=== PATIENT | female | born 1985 | race Caucasian/White ===

== ENCOUNTER 2020-05-12 23:14 | Observation (INO) | payer MEDICAID ==
[2020-05-12] MEDS ORDERED: EPINEPHRINE 1MG/ML AMP ONE (23:35)
[2020-05-12] MEDS ORDERED: solu-MEDROL 125 MG IV ONE (23:37)
[2020-05-12] MEDS ORDERED: BENADRYL 50 MG/ML ONE (23:38)
[2020-05-12] MEDS ORDERED: BENADRYL 50 MG/ML IV ONE (23:38)
[2020-05-12] MEDS ORDERED: Pepcid 20 MG VIAL IV ONE ×2 (23:38)
[2020-05-12] MEDS ORDERED: solu-MEDROL 125 MG ONE (23:38)
[2020-05-12] MEDS ORDERED: EPINEPHRINE 1MG/ML AMP IM ONE (23:40)
[2020-05-13 00:04] LABS: Absolute Neutrophil Ct (ANC) 7.57 (1.4-6.9); BASOPHIL % 0.4 % (0.0-0.4); Basophil (Absolute #) 0.04 (0-0.4); Eosinophil % 5.2 % (0.00-5.0); Eosinophil (Absolute #) 0.56 (0-0.5); Hematocrit 40.9 % (35-47); Hemoglobin 13.8 gm/dl (12.0-16.0); Lymphocyte (Absolute #) 1.83 (1.0-4.6); Lymphocytes % 16.9 % (24.0-44.0); Mean Cell Volume 90.1 fl (78-100); Mean Corpuscular Hemoglobin 30.4 pg (26-32); Mean Corpuscular Hgb Concent. 33.7 g/dl (32-36); Mean Platelet Volume 9.9 fl (7.5-11.0); Monocyte (Absolute #) 0.85 (0.0-1.3); Monocytes % 7.8 % (0.0-12.0); Neutrophil % 69.7 % (36.0-66.0); Platelet Count 322 K/mm3 (150-450); Red Blood Count 4.54 M/mm3 (4.1-5.4); Red Cell Distribution Width 12.5 % (11.5-14.0); White Blood Count 10.9 K/mm3 (4.0-10.5)
[2020-05-13 00:17] LABS: ALKALINE PHOSPHATASE 56 U/L (38-126); ANION GAP 12.1 MEQ/L (5-15); BLOOD UREA NITROGEN 15 mg/dL (7-17); CHLORIDE 106 mmol/L (98-107); Calcium 9.2 mg/dL (8.4-10.2); Carbon Dioxide 24 mmol/L (22-30); Creatinine 1 0.62 mg/dL (0.52-1.04); EST GLOMERULAR FILTRATION RATE > 60.0 ML/MIN; Glucose 104 mg/dL (74-106); Potassium 3.6 mmol/L (3.5-5.1); SGOT/AST 21 U/L (14-36); SGPT/ALT 13 U/L (0-35); SODIUM 138 mmol/L (137-145); Total Protein 7.3 g/dL (6.3-8.2)
--- NOTE | 2020-05-13 00:41 | ERPHSYRPT ---
- History of Present Illness Time Seen by Provider: 05/12/20 23:45 Source: patient Exam Limitations: no limitations Patient Subjective Stated Complaint: pt states that she was cleaning this morning with bleach and had a reaction Triage Nursing Assessment: pt ambulated into the er; pt is tearful, anxious, restless; pt is unable to talk due to swelling of lips and tongue; c/o allergic reaction; pt denies pain; pt has swelling to face, lips, tongue; pt has hived throughtout body; pt states itching throughtout torso; pt has diminished breath sound to upper lobes; lower lobes are clear; pt denies pain; hypertension; pt states exposure to bleach was 0400 this morning Physician History: Patient is a 34-year-old female presents to our ED with complaints of allergic reaction. Patient attributes her reaction to bleach exposure. Patient states she was cleaning earlier in the day. She was splashed with bleach on her anterior chest and face. Patient states that thereafter she became itchy. Patient felt her tongue started to swell. Patient did not immediately come in that she felt things would resolve. However symptoms worsen. Patient currently has swelling of her lips and her tongue. She is tolerating oral secretions. Lungs are clear. Patient complains of pruritic rash at her and abdominal area. Patient states she chronically has dry skin. Patient does not have a history of eczema. Symptoms are mild to moderate in intensity. Symptoms are progressive. No associated chest pain or shortness of breath. No nausea vomiting or diaphoresis. Patient voices no other complaints at this time. Timing/Duration: today Severity: moderate Modifying Factors: Improves With: nothing Associated Symptoms: denies symptoms Allergies/Adverse Reactions: cephalexin [From Keflex] Allergy (Verified 05/12/20 23:30) Hx Tetanus, Diphtheria Vaccination/Date Given: No (unknown) Hx Influenza Vaccination/Date Given: No Travel Risk - International Travel Have you traveled outside of the country in past 3 weeks: No - Coronavirus Screening Are you exhibiting any of the following symptoms?: No Close contact with a COVID-19 positive Pt in past 14-21 Days: No - Review of Systems Constitutional: No Symptoms, No Fever, No Chills Eyes: No Symptoms Ears, Nose, & Throat: No Symptoms Respiratory: No Symptoms, Other, No Cough, No Dyspnea, No Stridor, No Wheezing Cardiac: No Symptoms (Lungs are clear.), No Chest Pain, No Edema, No Syncope Abdominal/Gastrointestinal: No Symptoms, Other (No abdominal pain or cramping.), No Abdominal Pain, No Nausea, No Vomiting, No Diarrhea Genitourinary Symptoms: No Symptoms, No Dysuria Musculoskeletal: No Symptoms, No Back Pain, No Neck Pain Skin: Rash, Other (Pruritic rash observed at bilateral upper extremities upper chest and abdomen.) Neurological: No Dizziness, No Focal Weakness, No Sensory Changes Psychological: No Symptoms Endocrine: No Symptoms Hematologic/Lymphatic: No Symptoms Immunological/Allergic: No Symptoms All Other Systems: Unable due to condition - Past Medical History Pertinent Past Medical History: No - Past Surgical History Past Surgical History: Yes Female Surgical History: Tubal Ligation - Social History Smoking Status: Current every day smoker Exposure to second hand smoke: Yes Drug Use: none Patient Lives Alone: No - Female History Hx Now: No - Nursing Vital Signs Nursing Vital Signs: Initial Vital Signs Temperature 98.4 F 05/12/20 23:31 Pulse Rate 97 H 05/12/20 23:31 Respiratory Rate 22 05/12/20 23:31 Blood Pressure 165/138 05/12/20 23:31 O2 Sat by Pulse Oximetry 98 05/12/20 23:31 Pain Scale Pain Intensity 0 - Physical Exam General Appearance: no apparent distress, alert Eye Exam: PERRL/EOMI, eyes nml inspection Ears, Nose, Throat Exam: normal ENT inspection, TMs normal, pharynx normal, moist mucous membranes Neck Exam: normal inspection, non-tender, supple, full range of motion Respiratory Exam: normal breath sounds, lungs clear, No respiratory distress, No airway intact (There is trismus observed. However patient tolerating secretions.) Cardiovascular Exam: regular rate/rhythm, normal heart sounds, normal peripheral pulses Gastrointestinal/Abdomen Exam: soft, normal bowel sounds, No tenderness, No mass Back Exam: normal inspection, normal range of motion, No CVA tenderness, No vertebral tenderness Extremity Exam: normal inspection, normal range of motion, pelvis stable Neurologic Exam: alert, oriented x 3, cooperative, normal mood/affect, sensation nml, No motor deficits Skin Exam: normal color, warm, dry, other (Patient has hives on chest and upper extremity.), No rash Lymphatic Exam: No adenopathy SpO2 Interpretation: normal SpO2: 100 O2 Delivery: Room Air - Course Nursing assessment & vital signs reviewed: Yes - Radiology Exams Chest X-ray Interpretation: Teleradiologist Report ([facility] pathology. Lungs unremarkable. Pleural spaces unremarkable. Heart mediastinum unremarkable. There is a mild lateral curvature in the lower thoracic spine which may be due to patient positioning or mild dextroscoliosis.) Ordered Tests: Active Orders 24 hr Category Date Time Status Tile Sprayer STAT Care 05/12/20 23:40 Active IV Insertion STAT Care 05/12/20 23:40 Active Pulse Oximetry (ED) STAT Care 05/12/20 23:40 Active CHEST 1 VIEW (PORTABLE) Stat Exams 05/12/20 23:41 Taken CBC W DIFF Stat Lab 05/12/20 00:00 Completed CMP Stat Lab 05/12/20 00:00 Completed HCG,QUALITATIVE URINE Stat Lab 05/13/20 00:15 Completed UA W/RFX UR CULTURE Stat Lab 05/13/20 00:15 Completed Transfer Order Routine Transfer 05/13/20 Ordered Medication Summary Discontinued Medications Generic Name Dose Route Start Last Admin Trade Name Luis Mq PRN Reason Stop Dose Admin Diphenhydramine HCl 25 mg 05/12/20 23:38 05/12/20 23:43 Benadryl 50 Mg/Ml IV 05/12/20 23:39 25 mg STAT ONE Administration Diphenhydramine HCl Confirm 05/12/20 23:38 Benadryl 50 Mg/Ml Administered 05/12/20 23:39 Dose 50 mg .ROUTE .STK-MED ONE Diphenhydramine HCl 25 mg 05/13/20 00:43 05/13/20 00:53 Benadryl 50 Mg/Ml IV 05/13/20 00:44 25 mg STAT ONE Administration Diphenhydramine HCl Confirm 05/13/20 00:52 Benadryl 50 Mg/Ml Administered 05/13/20 00:53 Dose 50 mg .ROUTE .STK-MED ONE Epinephrine HCl Confirm 05/12/20 23:35 Epinephrine 1mg/Ml Amp Administered 05/12/20 23:36 Dose 1 mg .ROUTE .STK-MED ONE Epinephrine HCl 0.3 mg 05/12/20 23:40 05/12/20 23:41 Epinephrine 1mg/Ml Amp IM 05/12/20 23:41 0.3 mg STAT ONE Administration Famotidine 20 mg 05/12/20 23:38 05/12/20 23:45 Pepcid 20 Mg Vial IV 05/12/20 23:39 20 mg STAT ONE Administration Famotidine Confirm 05/12/20 23:38 Pepcid 20 Mg Vial Administered 05/12/20 23:39 Dose 20 mg IV .STK-MED ONE Methylprednisolone Sodium Succinate 125 mg 05/12/20 23:37 05/12/20 23:50 Solu-Medrol 125 Mg IV 05/12/20 23:38 125 mg STAT ONE Administration Methylprednisolone Sodium Succinate Confirm 05/12/20 23:38 Solu-Medrol 125 Mg Administered 05/12/20 23:39 Dose 125 mg .ROUTE .STK-MED ONE Lab/Rad Data: Laboratory Result Diagrams 05/12/20 00:00 05/12/20 00:00 Laboratory Results 05/13/20 05/13/20 05/12/20 Range/Units 00:15 00:15 00:00 WBC (4.0-10.5) K/mm3 RBC (4.1-5.4) M/mm3 Hgb (12.0-16.0) gm/dl Hct (35-47) % MCV (78-100) fl MCH (26-32) pg MCHC (32-36) g/dl RDW (11.5-14.0) % Plt Count (150-450) K/mm3 MPV (7.5-11.0) fl Gran % (36.0-66.0) % Eos # (Auto) (0-0.5) Absolute Lymphs (auto) (1.0-4.6) Absolute Monos (auto) (0.0-1.3) Lymphocytes % (24.0-44.0) % Monocytes % (0.0-12.0) % Eosinophils % (0.00-5.0) % Basophils % (0.0-0.4) % Absolute Granulocytes (1.4-6.9) Basophils # (0-0.4) Sodium 138 (137-145) mmol/L Potassium 3.6 (3.5-5.1) mmol/L Chloride 106 (98-107) mmol/L Carbon Dioxide 24 (22-30) mmol/L Anion Gap 12.1 (5-15) MEQ/L BUN 15 (7-17) mg/dL Creatinine 0.62 (0.52-1.04) mg/dL Estimated GFR > 60.0 ML/MIN Glucose 104 (74-106) mg/dL Calcium 9.2 (8.4-10.2) mg/dL Total Bilirubin 0.10 L (0.2-1.3) mg/dL AST 21 (14-36) U/L ALT 13 (0-35) U/L Alkaline Phosphatase 56 (38-126) U/L Serum Total Protein 7.3 (6.3-8.2) g/dL Albumin 4.0 (3.5-5.0) g/dL Urine Color YELLOW (YELLOW) Urine Appearance CLEAR (CLEAR) Urine pH 6.0 (5-6) Ur Specific [place] 1.017 (1.005-1.025) Urine Protein NEGATIVE (Negative) Urine Ketones NEGATIVE (NEGATIVE) Urine Blood LARGE (0-5) Luis/ul Urine Nitrite NEGATIVE (NEGATIVE) Urine Bilirubin NEGATIVE (NEGATIVE) Urine Urobilinogen NEGATIVE (0-1) mg/dL Ur Leukocyte Esterase TRACE (NEGATIVE) Urine WBC (Auto) 3-5 (0-5) /HPF Urine RBC (Auto) 26-50 (0-2) /HPF U Epithel Cells (Auto) NONE (FEW) /HPF Urine Bacteria (Auto) NONE (NEGATIVE) /HPF Urine Mucus (Auto) SLIGHT (NEGATIVE) /HPF Urine Culture Reflexed NO (NO) Urine Glucose NEGATIVE (NEGATIVE) mg/dL Urine HCG, Qual NEGATIVE (Negative) 05/12/20 Range/Units 00:00 WBC 10.9 H (4.0-10.5) K/mm3 RBC 4.54 (4.1-5.4) M/mm3 Hgb 13.8 (12.0-16.0) gm/dl Hct 40.9 (35-47) % MCV 90.1 (78-100) fl MCH 30.4 (26-32) pg MCHC 33.7 (32-36) g/dl RDW 12.5 (11.5-14.0) % Plt Count 322 (150-450) K/mm3 MPV 9.9 (7.5-11.0) fl Gran % 69.7 H (36.0-66.0) % Eos # (Auto) 0.56 H (0-0.5) Absolute Lymphs (auto) 1.83 (1.0-4.6) Absolute Monos (auto) 0.85 (0.0-1.3) Lymphocytes % 16.9 L (24.0-44.0) % Monocytes % 7.8 (0.0-12.0) % Eosinophils % 5.2 H (0.00-5.0) % Basophils % 0.4 (0.0-0.4) % Absolute Granulocytes 7.57 H (1.4-6.9) Basophils # 0.04 (0-0.4) Sodium (137-145) mmol/L Potassium (3.5-5.1) mmol/L Chloride (98-107) mmol/L Carbon Dioxide (22-30) mmol/L Anion Gap (5-15) MEQ/L BUN (7-17) mg/dL Creatinine (0.52-1.04) mg/dL Estimated GFR ML/MIN Glucose (74-106) mg/dL Calcium (8.4-10.2) mg/dL Total Bilirubin (0.2-1.3) mg/dL AST (14-36) U/L ALT (0-35) U/L Alkaline Phosphatase (38-126) U/L Serum Total Protein (6.3-8.2) g/dL Albumin (3.5-5.0) g/dL Urine Color (YELLOW) Urine Appearance (CLEAR) Urine pH (5-6) Ur Specific [place] (1.005-1.025) Urine Protein (Negative) Urine Ketones (NEGATIVE) Urine Blood (0-5) Luis/ul Urine Nitrite (NEGATIVE) Urine Bilirubin (NEGATIVE) Urine Urobilinogen (0-1) mg/dL Ur Leukocyte Esterase (NEGATIVE) Urine WBC (Auto) (0-5) /HPF Urine RBC (Auto) (0-2) /HPF U Epithel Cells (Auto) (FEW) /HPF Urine Bacteria (Auto) (NEGATIVE) /HPF Urine Mucus (Auto) (NEGATIVE) /HPF Urine Culture Reflexed (NO) Urine Glucose (NEGATIVE) mg/dL Urine HCG, Qual (Negative) - Progress Progress: improved Progress Note: 05/13/20 00:59 patient reassessed. Patient is much more conversant at this time. She states she feels a swelling in her tongue and mouth decreasing. Patient still experiencing some pruritus. A second 25 mg dose of Benadryl ord ered. Patient is improving. However she is not ready for discharge. Case discussed with Dr. Zvaala who accepts admission to observation. We will place patient in the intensive care unit for observation. Plan of care discussed with patient. She agrees to admission to [facility] for further evaluation and treatment. She voices no other complaints or concerns at this time. Discussed with .: Nara Will see patient in: hospital (observation) Counseled pt/family regarding: lab results, diagnosis, rad results - Departure Departure Disposition: Observation Clinical Impression: Allergic reaction, Pruritic rash Condition: Stable Critical Care Time: No Referrals: LANCE CERRATO [Primary Care Provider] -
[2020-05-13] MEDS ORDERED: BENADRYL 50 MG/ML IV ONE (00:43)
[2020-05-13 00:44] LABS: Appearance CLEAR (CLEAR); Bilirubin NEGATIVE (NEGATIVE); Blood LARGE Ery/ul (0-5); Glucose NEGATIVE (NEGATIVE); Ketones NEGATIVE (NEGATIVE); Leukocyte Esterase TRACE (NEGATIVE); Mucus SLIGHT /HPF (NEGATIVE); Nitrite NEGATIVE (NEGATIVE); Protein,Urine Dip NEGATIVE (Negative); RBC 26-50 /HPF (0-2); Specific Gravity 1.017 (1.005-1.025); Urobilinogen NEGATIVE mg/dL (0-1)
[2020-05-13] MEDS ORDERED: BENADRYL 50 MG/ML ONE (00:52)
[2020-05-13] MEDS ORDERED: Nicoderm CQ 21 MG TOP ONE (03:59)
[2020-05-13] MEDS: BENADRYL 50 MG/ML IV PRN ×4 (04:05→20:55)
[2020-05-13 05:13] LABS: Absolute Neutrophil Ct (ANC) 15.32 (1.4-6.9); BASOPHIL % 0.2 % (0.0-0.4); Basophil (Absolute #) 0.03 (0-0.4); Eosinophil % 0.2 % (0.00-5.0); Eosinophil (Absolute #) 0.03 (0-0.5); Hematocrit 41.9 % (35-47); Hemoglobin 13.9 gm/dl (12.0-16.0); Lymphocyte (Absolute #) 0.64 (1.0-4.6); Mean Cell Volume 90.1 fl (78-100); Mean Corpuscular Hemoglobin 29.9 pg (26-32); Mean Corpuscular Hgb Concent. 33.2 g/dl (32-36); Mean Platelet Volume 10.1 fl (7.5-11.0); Monocyte (Absolute #) 0.05 (0.0-1.3); Monocytes % 0.3 % (0.0-12.0); Neutrophil % 95.3 % (36.0-66.0); Platelet Count 327 K/mm3 (150-450); Red Blood Count 4.65 M/mm3 (4.1-5.4); Red Cell Distribution Width 12.6 % (11.5-14.0); White Blood Count 16.1 K/mm3 (4.0-10.5)
[2020-05-13 05:30] LABS: ALBUMIN 4.1 g/dL (3.5-5.0); ALKALINE PHOSPHATASE 63 U/L (38-126); BLOOD UREA NITROGEN 12 mg/dL (7-17); CHLORIDE 107 mmol/L (98-107); Calcium 9.6 mg/dL (8.4-10.2); Carbon Dioxide 22 mmol/L (22-30); Creatinine 1 0.66 mg/dL (0.52-1.04); EST GLOMERULAR FILTRATION RATE > 60.0 ML/MIN; Glucose 169 mg/dL (74-106); Potassium 3.7 mmol/L (3.5-5.1); SGOT/AST 19 U/L (14-36); SGPT/ALT 15 U/L (0-35); SODIUM 138 mmol/L (137-145); Total Protein 7.5 g/dL (6.3-8.2)
[2020-05-13] MEDS: Ativan 2 MG/1 ML VIAL IV PRN ×3 (08:35→20:55)
[2020-05-13] MEDS: Pepcid 20 MG VIAL IV SCH ×2 (08:35→20:54)
[2020-05-13] MEDS: solu-MEDROL 125 MG IV SCH ×3 (08:35→20:54)
--- NOTE | 2020-05-13 09:09 | XRAY ---
Indication: Short of breath. Comparison: None Portable chest demonstrates normal heart and lungs. Bony thorax intact with mild dextroscoliosis centered at T9. Comment: Preliminary interpretation was made by [facility]. No critical discrepancy.
[2020-05-13 23:51] VITALS: BP 126/81; PULSE 90; O2SAT 98
--- NOTE | 2020-05-14 13:10 | PCM.SSS ---
History of Present Illness - Chief Complaint Chief Complaint: Allergic reaction History of Present Illness: is a 34 year old female. presents to our ED with complaints of allergic reaction. Patient attributes her reaction to bleach exposure. Patient states she was cleaning earlier in the day. She was splashed with bleach on her anterior chest and face. Patient states that thereafter she became itchy. Patient felt her tongue started to swell. Patient did not immediately come in that she felt things would resolve. However symptoms worsen. Patient currently has swelling of her lips and her tongue. She is tolerating oral secretions. Lungs are clear. Patient complains of pruritic rash at her and abdominal area. Patient states she chronically has dry skin. Patient does not have a history of eczema. Symptoms are mild to moderate in intensity. Symptoms are progressive. No associated chest pain or shortness of breath. No nausea vomiting or diaphoresis. Patient voices no other complaints at this time. Timing/Duration: today Severity: moderate Modifying Factors: Improves With: nothing Associated Symptoms: denies symptoms - Review of Systems Constitutional: No Fever, No Chills Eyes: No Symptoms Ears, Nose, & Throat: No Symptoms Respiratory: No Cough, No Short Of Breath Cardiac: No Chest Pain, No Edema, No Syncope Abdominal/Gastrointestinal: No Abdominal Pain, No Nausea, No Vomiting, No Diarrhea Genitourinary Symptoms: No Dysuria Musculoskeletal: No Back Pain, No Neck Pain Skin: Pruritis, Rash, Skin Lesions Neurological: No Dizziness, No Focal Weakness, No Sensory Changes Psychological: No Symptoms Endocrine: No Symptoms Hematologic/Lymphatic: No Symptoms Immunological/Allergic: No Symptoms Medications & Allergies Home Medications: Home Medication List No Reportable Medications [No Reported Medications] 05/13/20 [History Confirmed 05/13/20] Allergies/Adverse Reactions: Allergies Allergy/AdvReac Type Severity Reaction Status Date / Time cephalexin [From Keflex] Allergy Verified 05/13/20 07:23 - Past Medical History Past Medical History: No - Female History Are you now?: No - Past Surgical History Past Surgical History: Yes Female Surgical History: Tubal Ligation - Social History Smoking Status: Current every day smoker How long have you smoked: 16 Exposure to second hand smoke: Yes Alcohol: None Drug Use: none - Physical Exam Vital Signs: Vital Signs - 24 hr Temp Pulse Resp BP Pulse Ox 05/13/20 23:50 97.9 F 90 15 126/81 98 02/10/21 20:10 94 L 05/13/20 20:00 103 H 05/13/20 19:43 98.0 F 93 H 23 130/75 97 05/13/20 16:00 98.0 F 91 H 20 133/82 95 General Appearance: moderate distress, alert Neurologic Exam: alert, oriented x 3, cooperative, normal mood/affect, nml cerebellar function, nml station & gait, sensation nml, No motor deficits Eye Exam: PERRL/EOMI, eyes nml inspection Ears, Nose, Throat Exam: normal ENT inspection, TMs normal, pharynx normal, moist mucous membranes Neck Exam: normal inspection, non-tender, supple, full range of motion Respiratory Exam: respiratory distress, wheezing Cardiovascular Exam: regular rate/rhythm, normal heart sounds, normal peripheral pulses Gastrointestinal/Abdomen Exam: soft, normal bowel sounds, No tenderness, No mass Back Exam: normal inspection, normal range of motion, No CVA tenderness, No vertebral tenderness Extremity Exam: normal inspection, normal range of motion, pelvis stable Skin Exam: normal color, warm, dry, rash Lymphatic Exam: No adenopathy Results - Radiology Impressions Radiology Exams & Impressions: Radiology Procedures Category Date Time Status CHEST 1 VIEW (PORTABLE) Stat Exams 05/12/20 23:41 Completed Assessment/Plan (1) Allergic reaction Status: Acute Qualifiers: Encounter type: subsequent encounter Qualified Code(s): T78.40XD - Allergy, unspecified, subsequent encounter Assessment & Plan: Chief Complaint Diagnosis Allergic reaction Allergies Allergy/AdvReac Type Severity Reaction Status Date / Time cephalexin [From Keflex] Allergy Verified 05/13/20 07:23 Vital Signs (Last 24 hours) Temp Pulse Resp BP Pulse Ox 05/13/20 23:50 97.9 F 90 15 126/81 98 05/13/20 20:10 94 L 05/13/20 20:00 103 H 05/13/20 19:43 98.0 F 93 H 23 130/75 97 05/13/20 16:00 98.0 F 91 H 20 133/82 95 Home Medications Medication Instructions Recorded Confirmed Last Taken Type No Reportable Medications [No 05/13/20 05/13/20 Unknown History Reported Medications] Current Medications Discontinued Medications Generic Name Dose Route Start Last Admin Trade Name Freq PRN Reason Stop Dose Admin Diphenhydramine HCl 25 mg 02/09/21 23:38 05/12/20 23:43 Benadryl 50 Mg/Ml IV 05/12/20 23:39 25 mg STAT ONE Administration Diphenhydramine HCl Confirm 05/12/20 23:38 Benadryl 50 Mg/Ml Administered 05/12/20 23:39 Dose 50 mg .ROUTE .STK-MED ONE Diphenhydramine HCl 25 mg 05/13/20 00:43 05/13/20 00:53 Benadryl 50 Mg/Ml IV 05/13/20 00:44 25 mg STAT ONE Administration Diphenhydramine HCl Confirm 05/13/20 00:52 Benadryl 50 Mg/Ml Administered 05/13/20 00:53 Dose 50 mg .ROUTE .STK-MED ONE Diphenhydramine HCl 25 mg 05/13/20 03:59 05/13/20 20:55 Benadryl 50 Mg/Ml IV 06/12/20 03:58 25 mg Q4H PRN PRN Administration ITCHING Epinephrine HCl Confirm 05/12/20 23:35 Epinephrine 1mg/Ml Amp Administered 05/12/20 23:36 Dose 1 mg .ROUTE .STK-MED ONE Epinephrine HCl 0.3 mg 05/12/20 23:40 05/12/20 23:41 Epinephrine 1mg/Ml Amp IM 05/12/20 23:41 0.3 mg STAT ONE Administration Famotidine 20 mg 05/12/20 23:38 05/12/20 23:45 Pepcid 20 Mg Vial IV 05/12/20 23:39 20 mg STAT ONE Administration Famotidine Confirm 05/12/20 23:38 Pepcid 20 Mg Vial Administered 05/12/20 23:39 Dose 20 mg IV .STK-MED ONE Famotidine 20 mg 05/13/20 10:00 05/13/20 20:54 Pepcid 20 Mg Vial IV 06/12/20 09:59 20 mg Q12HT MISTI Administration Lorazepam 1 mg 05/13/20 08:23 05/13/20 20:55 Ativan 2 Mg/1 Ml Vial IV 06/12/20 08:22 1 mg Q4H PRN PRN Administration ANXIETY/AGITATION Methylprednisolone Sodium Succinate 125 mg 05/12/20 23:37 05/12/20 23:50 Solu-Medrol 125 Mg IV 05/12/20 23:38 125 mg STAT ONE Administration Methylprednisolone Sodium Succinate Confirm 05/12/20 23:38 Solu-Medrol 125 Mg Administered 05/12/20 23:39 Dose 125 mg .ROUTE .STK-MED ONE Methylprednisolone Sodium Succinate 125 mg 05/13/20 09:00 05/13/20 20:54 Solu-Medrol 125 Mg IV 06/12/20 08:59 125 mg Q6H MISTI Administration Nicotine 21 mg 05/13/20 03:59 05/13/20 04:03 Nicoderm Cq 21 Mg TOP 05/13/20 04:00 21 mg STAT ONE Administration Intake & Output (Last 24 hours) 05/12/20 05/13/20 05/14/20 05/15/20 11:59 11:59 11:59 11:59 Intake Total 200 480 Output Total 450 600 Balance -250 -120 Weight 65.7 kg Patient Care Notes (Last 24 hours) 05/14/20 01:03 Nursing Note by Sallie Kelly Patient walked to Emergency Room entrance by this RN where she was met by her ride outside. Patient left AMA. Paper signed and placed on chart. Initialized on 05/14/20 01:03 - END OF NOTE 05/14/20 00:27 Nursing Note by Sallie Kelly This nurse heard patient yelling from hallway. Checked on patient who was yelling at someone on her cell phone. Patient appears angry and upset. Overheard shouting, "I need a cigarrette!" Patient then called this nurse and ANTIONE Mayer to her room. Patient stated that her father was being taken to the hospital and needed her to be there. Patient requesting to leave hospital at this time. This nurse asked patient if she had any plan to hurt herself after leaving, and she said, "No." Patient provided with AMA paper, and she signed it. This nurse contacted Dr. Garcia and informed him of patient's plan to leave AMA. Encouraged patient to get a ride home as it is cold outside, and she lives outside of this area. Patient heard yelling and screaming from hallway and throwing her phone. IV removed, tip of catheter intact. Telemetry electrodes removed. Now awaiting patient's ride. Initialized on 05/14/20 00:27 - END OF NOTE Code(s): T78.40XA - ALLERGY, UNSPECIFIED, INITIAL ENCOUNTER (2) Pruritic rash Status: Acute Code(s): L28.2 - OTHER PRURIGO Hospital Summary - Hospital Course Hospital Course: Chief Complaint Diagnosis Allergic reaction Allergies Allergy/AdvReac Type Severity Reaction Status Date / Time cephalexin [From Keflex] Allergy Verified 05/13/20 07:23 Vital Signs (Last 24 hours) Temp Pulse Resp BP Pulse Ox 05/13/20 23:50 97.9 F 90 15 126/81 98 05/13/20 20:10 94 L 05/13/20 20:00 103 H 05/13/20 19:43 98.0 F 93 H 23 130/75 97 05/13/20 16:00 98.0 F 91 H 20 133/82 95 Home Medications Medication Instructions Recorded Confirmed Last Taken Type No Reportable Medications [No 05/13/20 05/13/20 Unknown History Reported Medications] Current Medications Discontinued Medications Generic Name Dose Route Start Last Admin Trade Name Luis Mq PRN Reason Stop Dose Admin Diphenhydramine HCl 25 mg 05/12/20 23:38 05/12/20 23:43 Benadryl 50 Mg/Ml IV 05/12/20 23:39 25 mg STAT ONE Administration Diphenhydramine HCl Confirm 05/12/20 23:38 Benadryl 50 Mg/Ml Administered 05/12/20 23:39 Dose 50 mg .ROUTE .STK-MED ONE Diphenhydramine HCl 25 mg 05/13/20 00:43 05/13/20 00:53 Benadryl 50 Mg/Ml IV 05/13/20 00:44 25 mg STAT ONE Administration Diphenhydramine HCl Confirm 05/13/20 00:52 Benadryl 50 Mg/Ml Administered 05/13/20 00:53 Dose 50 mg .ROUTE .STK-MED ONE Diphenhydramine HCl 25 mg 05/13/20 03:59 05/13/20 20:55 Benadryl 50 Mg/Ml IV 06/12/20 03:58 25 mg Q4H PRN PRN Administration ITCHING Epinephrine HCl Confirm 05/12/20 23:35 Epinephrine 1mg/Ml Amp Administered 05/12/20 23:36 Dose 1 mg .ROUTE .STK-MED ONE Epinephrine HCl 0.3 mg 05/12/20 23:40 05/12/20 23:41 Epinephrine 1mg/Ml Amp IM 05/12/20 23:41 0.3 mg STAT ONE Administration Famotidine 20 mg 05/12/20 23:38 05/12/20 23:45 Pepcid 20 Mg Vial IV 05/12/20 23:39 20 mg STAT ONE Administration Famotidine Confirm 05/12/20 23:38 Pepcid 20 Mg Vial Administered 05/12/20 23:39 Dose 20 mg IV .STK-MED ONE Famotidine 20 mg 05/13/20 10:00 05/13/20 20:54 Pepcid 20 Mg Vial IV 06/12/20 09:59 20 mg Q12HT MISTI Administration Lorazepam 1 mg 05/13/20 08:23 05/13/20 20:55 Ativan 2 Mg/1 Ml Vial IV 06/12/20 08:22 1 mg Q4H PRN PRN Administration ANXIETY/AGITATION Methylprednisolone Sodium Succinate 125 mg 05/12/20 23:37 05/12/20 23:50 Solu-Medrol 125 Mg IV 05/12/20 23:38 125 mg STAT ONE Administration Methylprednisolone Sodium Succinate Confirm 05/12/20 23:38 Solu-Medrol 125 Mg Administered 05/12/20 23:39 Dose 125 mg .ROUTE .STK-MED ONE Methylprednisolone Sodium Succinate 125 mg 05/13/20 09:00 05/13/20 20:54 Solu-Medrol 125 Mg IV 06/12/20 08:59 125 mg Q6H MISTI Administration Nicotine 21 mg 05/13/20 03:59 05/13/20 04:03 Nicoderm Cq 21 Mg TOP 05/13/20 04:00 21 mg STAT ONE Administration Intake & Output (Last 24 hours) 05/12/20 05/13/20 05/14/20 05/15/20 11:59 11:59 11:59 11:59 Intake Total 200 480 Output Total 450 600 Balance -250 -120 Weight 65.7 kg Patient Care Notes (Last 24 hours) 05/14/20 01:03 Nursing Note by Sallie Kelly Patient walked to Emergency Room entrance by this RN where she was met by her ride outside. Patient left AMA. Paper signed and placed on chart. Initialized on 05/14/20 01:03 - END OF NOTE 05/14/20 00:27 Nursing Note by Sallie Kelly This nurse heard patient yelling from hallway. Checked on patient who was yelling at someone on her cell phone. Patient appears angry and upset. Overheard shouting, "I need a cigarrette!" Patient then called this nurse and ANTIONE Mayer to her room. Patient stated that her father was being taken to the hospital and needed her to be there. Patient requesting to leave hospital at this time. This nurse asked patient if she had any plan to hurt herself after leaving, and she said, "No." Patient provided with AMA paper, and she signed it. This nurse contacted Dr. Garcia and informed him of patient's plan to leave AMA. Encouraged patient to get a ride home as it is cold outside, and she lives outside of this area. Patient heard yelling and screaming from hallway and throwing her phone. IV removed, tip of catheter intact. Telemetry electrodes removed. Now awaiting patient's ride. Initialized on 05/14/20 00:27 - END OF NOTE - Vitals & Intake/Output Vital Signs: Vital Signs Temperature 97.9 F 05/13/20 23:50 Pulse Rate 90 05/13/20 23:50 Respiratory Rate 15 05/13/20 23:50 Blood Pressure 126/81 05/13/20 23:50 O2 Sat by Pulse Oximetry 98 05/13/20 23:50 Intake & Output: Intake & Output 05/12/20 05/13/20 05/14/20 05/15/20 11:59 11:59 11:59 11:59 Intake Total 200 480 Output Total 450 600 Balance -250 -120 Weight 65.7 kg - Lab Result Diagrams: 05/13/20 04:40 05/13/20 04:40 - Radiology Exams Ordered Rad Exams-Entire Visit: Radiology Procedures Category Date Time Status CHEST 1 VIEW (PORTABLE) Stat Exams 05/12/20 23:41 Completed - Discharge Discharge Date: 05/14/20 Disposition: Against Medical Advice Condition: Stable Prescriptions: No Action No Reportable Medications [No Reported Medications] Follow up with: DOCTOR,NO FAMILY [Primary Care Provider] -
== END 2020-05-14 01:00 | disposition left against medical advice (07) ==
LOC: ED 23:14 → ICU 05-13 03:10 → UNDODISOB 05-14 01:00
PROVIDERS: ADMIT General Practice; ATTEND General Practice
DX: T78.49XA Other allergy, initial encounter (principal); L28.2 Other prurigo; R22.0 Localized swelling, mass and lump, head; T54.91XA Toxic effect of unspecified corrosive substance, accidental (unintentional), initial encounter
CPT/HCPCS: 36000; 36415; 71045; 80053; 81001; 84703; 85025; 93041; 93268; 94760; 96372; 96374; 96375; 96376; 99285; J0171; J1200; J2060; J2930; A9270-GY; G0378

== ENCOUNTER 2021-04-23 00:48 | Emergency (ER) | payer MEDICAID ==
--- NOTE | 2021-04-23 00:55 | ERPHSYRPT ---
- History of Present Illness Time Seen by Provider: 04/23/21 00:54 Source: patient Exam Limitations: no limitations Physician History: This is a 35-year-old white female who injured her right ankle prior to arrival to emergency department. She was stepping over and off a step and got her foot and ankle caught in a weed eater. There are no other complaints of pain or injury. Method of Injury: fell, twisted Occurred: just prior to arrival Quality: aching, throbbing Severity of Pain-Max: moderate Severity of Pain-Current: moderate Lower Extremities Pain: ankle: right Modifying Factors: Improves With: movement Associated Symptoms: other (Hurts to bear weight) Allergies/Adverse Reactions: cephalexin [From Keflex] Allergy (Verified 04/23/21 01:03) Rash Home Medications: No Reportable Medications [No Reported Medications] 05/13/20 [History] Hx Tetanus, Diphtheria Vaccination/Date Given: No (unknown) Hx Influenza Vaccination/Date Given: No Travel Risk - International Travel Have you traveled outside of the country in past 3 weeks: No - Coronavirus Screening Are you exhibiting any of the following symptoms?: No Close contact with a COVID-19 positive Pt in past 14-21 Days: No - Review of Systems Constitutional: No Symptoms Eyes: No Symptoms Ears, Nose, & Throat: No Symptoms Respiratory: No Symptoms Cardiac: No Symptoms Abdominal/Gastrointestinal: No Symptoms Genitourinary Symptoms: No Symptoms Musculoskeletal: Injury, Joint Pain Skin: No Symptoms Neurological: No Symptoms Psychological: No Symptoms Endocrine: No Symptoms Hematologic/Lymphatic: No Symptoms Immunological/Allergic: No Symptoms All Other Systems: Reviewed and Negative - Past Medical History Pertinent Past Medical History: No - Past Surgical History Past Surgical History: Yes Female Surgical History: Tubal Ligation - Social History Smoking Status: Current every day smoker How long have you smoked: 16 Exposure to second hand smoke: Yes Drug Use: none Patient Lives Alone: No - Nursing Vital Signs Nursing Vital Signs: Initial Vital Signs Temperature 98.9 F 04/23/21 00:55 Pulse Rate 106 H 04/23/21 00:55 Respiratory Rate 20 04/23/21 00:55 Blood Pressure 152/98 04/23/21 00:55 O2 Sat by Pulse Oximetry 98 04/23/21 00:55 Pain Scale Pain Intensity 10 - Physical Exam General Appearance: no apparent distress, alert Eyes, Ears, Nose, Throat Exam: normal ENT inspection, moist mucous membranes Neck Exam: normal inspection, non-tender, supple, full range of motion Cardiovascular/Respiratory Exam: chest non-tender, no respiratory distress Gastrointestinal/Abdominal Exam: non-tender Back Exam: normal inspection, normal range of motion, No CVA tenderness, No vertebral tenderness Hips Exam: bilateral: non-tender, normal inspection, normal range of motion, no evidence of injury Legs Exam: bilateral leg: non-tender, normal inspection, normal range of motion, no evidence of injury Knees Exam: bilateral knee: non-tender, normal inspection, normal range of motion, no evidence of injury Ankle Exam: right ankle: bone tenderness, soft tissue tenderness, left ankle: non-tender, normal range of motion, bilateral ankle: normal inspection, no evidence of injury Foot Exam: bilateral foot: non-tender, normal inspection, normal range of motion, no evidence of injury Neuro/Tendon Exam: normal sensation, normal motor functions, normal tendon functions, no evidence tendon injury Mental Status Exam: alert, oriented x 3, cooperative Skin Exam: normal color, warm, dry SpO2 Interpretation: normal - Course Nursing assessment & vital signs reviewed: Yes Ordered Tests: Active Orders 24 hr Category Date Time Status ANKLE (3 VIEWS) Stat Exams 04/23/21 Ordered - Progress Progress Note: 04/23/21 01:12 Right ankle x-ray shows no acute fracture or dislocation Counseled pt/family regarding: diagnosis, need for follow-up, rad results - Departure Departure Disposition: Home Clinical Impression: Right ankle sprain Condition: Stable Critical Care Time: No Referrals: DOCTOR,NO FAMILY [Primary Care Provider] - Follow up/PCP as directed Additional Instructions: Ice pack to area 3 times a day for the next 48 hours. Use Tylenol and ibuprofen for pain control. Follow-up with your primary care physician or the [facility] orthopedic clinic for persistent pain symptoms
[2021-04-23] MEDS ORDERED: MOTRIN 600 MG PO ONE (01:13)
[2021-04-23] MEDS ORDERED: NORCO 5/325 MG PO ONE (01:13)
[2021-04-23] MEDS ORDERED: MOTRIN 600 MG ONE (01:15)
[2021-04-23] MEDS ORDERED: NORCO 5/325 MG ONE (01:16)
[2021-04-23 01:31] VITALS: BP 147/111; PULSE 102; O2SAT 100
--- NOTE | 2021-04-23 09:00 | XRAY ---
Indication: Pain following fall. Comparison: None 3 view right ankle demonstrates mild lateral soft tissue swelling and tiny heel spurs. No other bony, articular, or soft tissue abnormalities.
== END 2021-04-23 01:31 | disposition home or self-care (01) ==
LOC: ED 00:48
DX: S93.401A Sprain of unspecified ligament of right ankle, initial encounter (principal); W18.09XA Striking against other object with subsequent fall, initial encounter; Z72.0 Tobacco use
CPT/HCPCS: 73610; 99284; A9270-GY

== ENCOUNTER 2023-05-04 14:43 | Emergency (ER) | payer MEDICAID, OTHER ==
[2023-05-04 15:11] VITALS: TEMP 99.5
--- NOTE | 2023-05-04 15:13 | ERPHSYRPT ---
- History of Present Illness Time Seen by Provider: 05/04/23 15:10 Source: patient Exam Limitations: no limitations Patient Subjective Stated Complaint: Patient states she was bitten by her dog yesterday evening. Patient states the dog recently had surgery on it's leg/paw and the patient accidentally sat down on the injured paw on the cough and the dog snapped at her, biting her in the face. Triage Nursing Assessment: Patient ambulated back to ER. She is alert and oriented; anxious. Patient scratching her head a lot. Patient c/o the right side of her face itching but denies any pain. 2 punctures noted to right cheek; one measuring 0.3cm X 2cm and the other measuring 0.2cm X 1.5cm. Scant purulent drainage coming from the distal puncture. These areas have been reported to this nurse as dog bites from this patient's and her fiance's dog. Her right cheeck is red, hot, swollen. Physician History: This is a 37-year-old white female patient who approximately 20 hours ago sat down next to her dog who relatively recently had surgery on the paw and accidentally sat on the Alvin. The dog then became angry and lashed out by biting the patient's right face. Patient presents to the emergency department with redness and swelling and tenderness and to bite chavez on her right cheek. Patient is allergic to Keflex. She states she has had penicillin in the past without any problems. Patient takes no medications chronically. She is a daily smoker cigarettes. Timing/Duration: yesterday Quality: painful Severity: moderate Location: face (Right side with cellulitis and swelling) Possible Causes: other (Dog bite approximately 20 hours ago) Associated Symptoms: other (Redness, cellulitis, swelling right face) Allergies/Adverse Reactions: cephalexin [From Keflex] Allergy (Verified 05/04/23 14:52) Rash Hx Tetanus, Diphtheria Vaccination/Date Given: No (NOT tetanus) Hx Influenza Vaccination/Date Given: No Hx Pneumococcal Vaccination/Date Given: No Immunizations Up to Date: No Travel Risk - International Travel Have you traveled outside of the country in past 3 weeks: No - Coronavirus Screening Are you exhibiting any of the following symptoms?: No Close contact with a COVID-19 positive Pt in past 14-21 Days: No - Vaccine Status Have you recieved a Covid-19 vaccination: No - Review of Systems Constitutional: No Symptoms Eyes: No Symptoms Ears, Nose, & Throat: No Symptoms Respiratory: No Symptoms Cardiac: No Symptoms Abdominal/Gastrointestinal: No Symptoms Genitourinary Symptoms: No Symptoms Musculoskeletal: No Symptoms Skin: Cellulitis (Right face) Neurological: No Symptoms Psychological: No Symptoms Endocrine: No Symptoms Hematologic/Lymphatic: No Symptoms Immunological/Allergic: No Symptoms All Other Systems: Reviewed and Negative - Past Medical History Pertinent Past Medical History: No - Past Surgical History Past Surgical History: Yes Female Surgical History: Tubal Ligation - Social History Smoking Status: Current every day smoker How long have you smoked: 16 Exposure to second hand smoke: No Drug Use: none Patient Lives Alone: No (fiance) - Female History Hx Now: No - Nursing Vital Signs Nursing Vital Signs: Initial Vital Signs Temperature 99.5 F 05/04/23 14:57 Pulse Rate 95 H 05/04/23 14:57 Respiratory Rate 17 05/04/23 14:57 Blood Pressure 140/91 05/04/23 14:57 O2 Sat by Pulse Oximetry 99 05/04/23 14:57 Pain Scale Pain Intensity 5 - Physical Exam General Appearance: no apparent distress, alert, anxiety Eye Exam: PERRL/EOMI, other (Mild right eye conjunctivitis) Ears, Nose, Throat Exam: normal ENT inspection, moist mucous membranes Neck Exam: normal inspection, non-tender, supple, full range of motion, other (No airway compromise) Respiratory Exam: normal breath sounds (. 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 No palpable abscess present. Dog bite sites without expressible pus.) Lymphatic Exam: No adenopathy SpO2 Interpretation: normal SpO2: 99 O2 Delivery: Room Air - Course Nursing assessment & vital signs reviewed: Yes Ordered Tests: Active Orders 24 hr Category Date Time Status FACIAL BONES WO CONTRAST [CT] Stat Exams 05/04/23 15:25 Completed Medication Summary Discontinued Medications Generic Name Dose Route Start Last Admin Trade Name Myesha PRN Reason Stop Dose Admin Amoxicillin/Clavulanate Potassium 500 mg 05/04/23 15:24 05/04/23 15:38 Amox Tr/Potassium Clavulanate 500 Mg Tablet PO 05/04/23 15:25 500 mg STAT ONE Administration Amoxicillin/Clavulanate Potassium Confirm 05/04/23 15:35 Amox Tr/Potassium Clavulanate 500 Mg Tablet Administered 05/04/23 15:36 Dose 500 mg .ROUTE .STK-MED ONE Doxycycline Hyclate 100 mg 05/04/23 15:22 05/04/23 15:37 Doxycycline Hyclate 100 Mg Tablet PO 05/04/23 15:23 100 mg STAT ONE Administration Doxycycline Hyclate Confirm 05/04/23 15:35 Doxycycline Hyclate 100 Mg Tablet Administered 05/04/23 15:36 Dose 100 mg .ROUTE .STK-MED ONE Ondansetron HCl 4 mg 05/04/23 15:23 05/04/23 15:37 Zofran 4 Mg/Udtablet Orally Disintegrating PO 05/04/23 15:24 4 mg STAT ONE Administration Ondansetron HCl Confirm 05/04/23 15:35 Zofran 4 Mg/Udtablet Orally Disintegrating Administered 05/04/23 15:36 Dose 4 mg .ROUTE .STK-MED ONE Oxycodone/Acetaminophen 1 tab 05/04/23 15:23 05/04/23 15:37 Oxycodone Hcl/Apap 5 Mg/325 Mg Tablet PO 05/04/23 15:24 1 tab STAT STA Administration Oxycodone/Acetaminophen Confirm 05/04/23 15:35 Oxycodone Hcl/Apap 5 Mg/325 Mg Tablet Administered 05/04/23 15:36 Dose 1 tab .ROUTE .STK-MED ONE - Progress Progress: unchanged Progress Note: 05/04/23 15:34 This patient's medical issue is 1 of moderate complexity. The level of complexity in the workup performed is based on review of the patient's past medical history, review of the patient's medication list, review of the patient's drug allergy list, history present illness, and physical findings on examination. This patient has no palpable abscess. There is no drainage of pus from the dog bite sites. There is obvious cellulitis presents on the right side of her cheek. She has no airway compromise. We will provide the patient with doxycycline and Augmentin as well as oral Percocet 5/325. We will perform a CT scan of the face to evaluate the soft tissue looking for an abscess pocket. The plan is to have the patient return tomorrow before noon for reassessment regardless if the CAT scan of the face is negative for an abscess. If there is an abscess present. We we will likely need to transfer the patient to an inpatient hospital facility where there is a plastic surgeon to perform intravenous antibiotics and for possible surgical intervention. The CT scan of the face without contrast shows right facial cellulitis with reactive cervical and mandibular adenopathy. There is no underlying facial solid or cystic soft tissue mass or abnormal fluid collection. Will see patient in: office Counseled pt/family regarding: diagnosis, rad results Medical Desision Making - Independent Historian Additional History obtained from: Spouse - Diagnostic Testing Diagnostic test were ordered, analyzed, and reviewed by me: Yes Radiological Interpretation: Reviewed by me, Teleradiologist Report - Risk of complications The pt has a mod risk of morbidity or mortality based on: Need for prescription drug management - Departure Clinical Impression: Facial cellulitis Condition: Stable Critical Care Time: No Referrals: DOCTOR,NO FAMILY [Primary Care Provider] - Follow up/PCP as directed Additional Instructions: Take your antibiotics as prescribed. Return to the emergency department tomorrow before noon, 05/05/2023, for reevaluation. Prescriptions: Oxycodone HCl/Acetaminophen [Percocet 5-325 mg Tablet] 1 each PO Q8H PRN PRN #6 tablet MDD 3 PRN Reason: Moderate To Severe Pain Amoxicillin/Potassium Clav [Augmentin 500-125 Tablet] 1 each PO TID 7 Days #21 tablet Doxycycline Hyclate 100 mg [Vibramycin 100 MG] 100 mg PO BID #14 tab
[2023-05-04] MEDS ORDERED: PERCOCET TABLET 5/325MG ONE (15:35)
[2023-05-04] MEDS ORDERED: Vibramycin 100 MG ONE (15:35)
[2023-05-04] MEDS ORDERED: ZOFRAN ODT 4 MG ONE (15:35)
[2023-05-04] MEDS ORDERED: Augmentin 500-125 Tablet ONE (15:35)
[2023-05-04] MEDS: PERCOCET TABLET 5/325MG PO STA (15:37)
[2023-05-04] MEDS: ZOFRAN ODT 4 MG PO ONE (15:37)
[2023-05-04] MEDS: Vibramycin 100 MG PO ONE (15:37)
[2023-05-04] MEDS: Augmentin 500-125 Tablet PO ONE (15:38)
[2023-05-04 15:54] VITALS: PULSE 90; RESP 19
--- NOTE | 2023-05-04 16:51 | XRAY ---
Indication: Right facial cellulitis. Dogbite. Multiple contiguous axial images obtained through the facial bones without contrast as ordered. Sagittal and coronal reformatted images obtained. Comparison: None Beam artifact from left dental amalgam and left lip jewelry. Moderate diffuse right facial cutaneous/subcutaneous induration favoring cellulitis. No focal solid/cystic soft tissue mass, fluid collection, or subcutaneous emphysema. Scattered small cervical and submandibular nodes, right greater than left presumed reactive. Visualized osseous structures intact without suspicious bony lesions or osseous destructive process. There is near complete opacification right maxillary sinus and minimal right ethmoid sinus. Remaining paranasal sinuses and nasal passages are clear. Mild nasal septal deviation to the left. Visualized cervical spine intact with minimal/mild C4-C6 degenerative spondylosis including 2-3 mm anterolisthesis C4 on C5. Base of brain unremarkable. Impression: 1. Right facial cellulitis with reactive cervical/submandibular adenopathy. No underlying focal solid/cystic soft tissue mass or abnormal fluid collection. 2. Incidental paranasal sinus disease and cervical degenerative spondylosis with minimal grade 1 C4 listhesis.
[2023-05-04 17:00] VITALS: O2SAT 99
[2023-05-04 17:02] VITALS: BP 150/99
== END 2023-05-04 17:10 | disposition home or self-care (01) ==
LOC: ED 14:43
DX: L03.211 Cellulitis of face (principal); S00.87XA Other superficial bite of other part of head, initial encounter; W54.0XXA Bitten by dog, initial encounter; Z79.891 Long term (current) use of opiate analgesic; Z28.310 Unvaccinated for COVID-19; Z72.0 Tobacco use
CPT/HCPCS: 70486; 99283; Q0162; A9270-GY

== ENCOUNTER 2023-05-05 13:56 | Emergency (ER) | payer OTHER ==
[2023-05-05 14:09] VITALS: BP 150/109; PULSE 106; TEMP 97.7; O2SAT 100
--- NOTE | 2023-05-05 14:37 | ERPHSYRPT ---
- History of Present Illness Source: patient Exam Limitations: no limitations Patient Subjective Stated Complaint: pt was bit by her dog a couple of days ago on the right cheek and was told to come back to have it checked, the cheek is red and swollen and appears to be infected Triage Nursing Assessment: Pt was brought to the ER by her boyfriend, hypertensive, rates pain as 10/10, right cheek is swollen and has 2 lacerations that appear infected, pulses normal, pt was here yesterday and was placed on 2 antibiotics and pain medicine Physician History: Patient is a 37-year-old female who was seen in the ER yesterday status post dog bite to her the right side of her face on 05/03/2023 who presents today for a recheck as advised by Dr. Ortiz. Patient had a CT of her face yesterday that demonstrated edema and adenopathy. She was started on Augmentin and doxycycline. Patient states that the edema is about the same and she continues to drain exudate from the inferior bite area. She has 2 open lacerations on the right side of her face. Patient denies fever but states that her pain is increasing Timing/Duration: other ( 05/03/2019) Severity: moderate Modifying Factors: Improves With: nothing Associated Symptoms: denies symptoms Allergies/Adverse Reactions: cephalexin [From Keflex] Allergy (Verified 05/05/23 14:09) Rash Hx Tetanus, Diphtheria Vaccination/Date Given: No (NOT tetanus) Hx Influenza Vaccination/Date Given: No Hx Pneumococcal Vaccination/Date Given: No Travel Risk - International Travel Have you traveled outside of the country in past 3 weeks: No - Coronavirus Screening Are you exhibiting any of the following symptoms?: No Close contact with a COVID-19 positive Pt in past 14-21 Days: No - Vaccine Status Have you recieved a Covid-19 vaccination: No - Review of Systems Constitutional: No Symptoms Eyes: Other Ears, Nose, & Throat: No Symptoms Respiratory: No Symptoms Cardiac: No Symptoms Abdominal/Gastrointestinal: No Symptoms Genitourinary Symptoms: No Symptoms Musculoskeletal: No Symptoms Neurological: No Symptoms Psychological: No Symptoms Endocrine: No Symptoms Hematologic/Lymphatic: No Symptoms Immunological/Allergic: No Symptoms - Past Medical History Pertinent Past Medical History: No - Past Surgical History Past Surgical History: Yes Female Surgical History: Tubal Ligation - Social History Smoking Status: Current every day smoker How long have you smoked: 16 Exposure to second hand smoke: Yes Drug Use: none Patient Lives Alone: No (fiance) - Female History Hx Now: No - Nursing Vital Signs Nursing Vital Signs: Initial Vital Signs Temperature 97.7 F 05/05/23 14:00 Pulse Rate 106 H 05/05/23 14:00 Blood Pressure 150/109 05/05/23 14:00 O2 Sat by Pulse Oximetry 100 05/05/23 14:00 Pain Scale Pain Intensity 10 hypertensive/tachycardic - Physical Exam General Appearance: mild distress ( mild distress due to pain and swelling) Eye Exam: PERRL/EOMI, other ( generalized edema and erythema inferior to right orbit) Ears, Nose, Throat Exam: normal ENT inspection, other ( Patient has marked edema and erythema of the right side of her face with 2 lacerations measuring 2 cm/no obvious exudate noted at this time/area is better tender to palpation) Neck Exam: normal inspection Respiratory Exam: normal breath sounds, lungs clear, airway intact Cardiovascular Exam: tachycardia, capillary refill <2 sec, No murmur Gastrointestinal/Abdomen Exam: soft, normal bowel sounds Back Exam: normal inspection, normal range of motion, No CVA tenderness, No vertebral tenderness Extremity Exam: normal inspection, normal range of motion Neurologic Exam: alert, oriented x 3, 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 No food or housing insecurity noted. Patient with obvious cellulitis of the right side of her face which most likely will need IV antibiotics. CBC, CMP and lactic acid labs ordered along with IV placement. Patient refused IV placement due to pain obtaining the first IV. She decided to leave AMA after the IV attempt was aborted. I advised the patient that she would need IV antibiotics with probable admit or transfer. Patient still decided to leave AMA after risk of worsening cellulitis, sepsis, and facial disfigurement explained to her. Patient advised to continue oral antibiotics, follow-up with the family MD, and return to ER for worsening condition. 05/05/23 14:46 Counseled pt/family regarding: diagnosis Medical Desision Making - Risk of complications The pt has a mod risk of morbidity or mortality based on: Need for prescription drug management The pt has a high risk of morbidity or mortality based on: Decision regarding hospitilization or escalation of hosp level of care - Departure Departure Disposition: AMA Clinical Impression: Facial cellulitis, Dog bite Condition: Stable Critical Care Time: No Referrals: DOCTOR,NO FAMILY [Primary Care Provider] - Follow up/PCP as directed
== END 2023-05-05 14:27 | disposition left against medical advice (07) ==
LOC: ED 13:56
DX: L03.211 Cellulitis of face (principal); S01.451D Open bite of right cheek and temporomandibular area, subsequent encounter; W54.0XXD Bitten by dog, subsequent encounter; Z28.310 Unvaccinated for COVID-19; Z72.0 Tobacco use
CPT/HCPCS: 99281